=== PATIENT | male | born 1940 | race Caucasian/White ===

== ENCOUNTER 2021-11-26 11:25 | Inpatient (IN) | payer MEDICARE, OTHER ==
[~2021-11-26] VITALS: Ht 177.8 cm; Wt 62.9 kg
[2021-11-26] MEDS ORDERED: CHOL500013 PO (12:13)
[2021-11-26] MEDS ORDERED: UBID50TA3 PO (12:13)
[2021-11-26] MEDS ORDERED: ASCO500 PO (12:13)
[2021-11-26] MEDS ORDERED: ERGO500054 PO (12:13)
[2021-11-26] MEDS ORDERED: CALC-1275 PO (12:13)
[2021-11-26] MEDS ORDERED: FISH1CAP50 PO (12:13)
[2021-11-26] MEDS ORDERED: VITA0.4T20 PO (12:13)
[2021-11-26] MEDS ORDERED: ASPI-1444 PO (12:13)
[2021-11-26] MEDS ORDERED: PANT-31 PO (12:13)
[2021-11-26] MEDS ORDERED: MULT-1290 PO (12:13)
[2021-11-26] MEDS ORDERED: PIRF801T PO (12:13)
[2021-11-26] MEDS ORDERED: LISI-893 PO (12:13)
[2021-11-26] MEDS ORDERED: FERR134T2 PO (12:13)
[2021-11-26 12:23] LABS: BASOPHILS % (AUTO) 0.3 % (0.0-2.0); EOSINOPHILS % (AUTO) 0.4 % (1.0-6.0); HEMATOCRIT 41.3 % (41-53); HEMOGLOBIN 13.9 g/dL (13.5-17.5); LYMPHOCYTES # (AUTO) 1.3 K/uL (1.0-4.8); LYMPHOCYTES % (AUTO) 15.5 % (22.0-44.0); MEAN CORPUSCULAR HEMOGLOBIN 29.9 pg (26.0-34.0); MEAN CORPUSCULAR HGB CONC 33.7 G/dL (31.0-37.0); MEAN CORPUSCULAR VOLUME 89 fL (80-100); MONOCYTES # (AUTO) 0.8 K/uL (0.1-1.0); MONOCYTES % (AUTO) 9.9 % (2.0-9.0); NEUTROPHILS # (AUTO) 6.1 K/uL (1.8-7.7); NEUTROPHILS % (AUTO) 73.9 % (40.0-70.0); PLATELET COUNT (AUTO) 349 K/uL (150-450); RED BLOOD CELL COUNT(AUTO) 4.66 MIL/uL (4.50-5.90); RED CELL DISTRIBUTION WIDTH 13.8 % (11.5-14.5)
[2021-11-26] MEDS ORDERED: DILTIAZEM HCL 5 MG/ML 5 ML VIAL IVP ONE ×2 (12:30→13:00)
[2021-11-26 12:33] LABS: ANION GAP 8 mmol/L (8-16); CALCIUM, TOTAL 9.7 mg/dL (8.8-10.5); CARBON DIOXIDE 28 mmol/L (22-29); CHLORIDE 101 mmol/L (98-107); CREATININE 0.97 mg/dL (0.60-1.30); GLUCOSE,RANDOM 107 mg/dL (70-110); POTASSIUM 4.9 mmol/L (3.5-5.1); SODIUM SERUM 137 mmol/L (136-145); UREA NITROGEN, BLOOD 14 mg/dL (7-18)
[2021-11-26 12:34] LABS: GLOMERULAR FILTR. RATE CALC > 60 mL/min (>60)
[2021-11-26 12:39] LABS: ALANINE AMINOTRANSFERASE 14 U/L (12-78); ALBUMIN 4.1 g/dL (3.4-5.0); ALKALINE PHOSPHATASE 78 U/L (46-116); ASPARTATE AMINOTRANSFERASE 15 U/L (15-37); BILIRUBIN,TOTAL 0.7 mg/dL (0.1-1.0); CREATINE KINASE, TOTAL ONLY 50 U/L (39-308); PHOSPHORUS 3.2 mg/dL (2.5-4.9)
[2021-11-26 12:40] LABS: INR 1.1 (0.9-1.1); PROTHROMBIN TIME 11.5 SEC (9.4-11.6)
[2021-11-26 12:51] LABS: TOTAL PROTEIN, SERUM 8.2 g/dL (6.4-8.2)
[2021-11-26 12:59] LABS: B-TYPE NATRIURETIC PEPTIDE 208 pg/mL (0-100)
[2021-11-26] MEDS ORDERED: DILTIAZEM HCL 125 MG in DEXTROSE 5%-WATER 100 ML IV PRN (13:45)
[2021-11-26] MEDS ORDERED: DILTIAZEM HCL 60 MG SR CAPSULE PO ONE (13:45)
[2021-11-26] MEDS ORDERED: AMIODARONE HCL 360 MG in DEXTROSE 5%-WATER 242.8 ML IV ONE (14:00)
[2021-11-26] MEDS ORDERED: AMIODARONE HCL 150 MG in DEXTROSE 5%-WATER 97 ML IV ONE (14:00)
[2021-11-26] MEDS ORDERED: DIGOXIN 250 MCG/ML 2 ML AMP IVP ONE (14:00)
[2021-11-26] MEDS ORDERED: OMEG-126 PO (14:12)
[2021-11-26] MEDS ORDERED: ONDANSETRON HCL 4 MG/2 ML VIAL IVP PRN (14:15)
[2021-11-26] MEDS ORDERED: HydrALAZINE HCL 20 MG/ML VIAL IVP PRN (14:15)
[2021-11-26] MEDS ORDERED: ACETAMINOPHEN 325 MG TABLET PO PRN (14:15)
[2021-11-26] MEDS ORDERED: BISACODYL 10 MG RECTAL RECTAL SUPPOSITORY PR PRN (14:15)
[2021-11-26] MEDS ORDERED: ALBUTEROL SULFATE 2.5 MG/0.5 ML NEB SOLUTION NEB PRN (14:15)
[2021-11-26] MEDS ORDERED: IPRATROPIUM BROMIDE 0.5 MG/2.5 ML NEB SOLUTION NEB PRN (14:15)
[2021-11-26] MEDS ORDERED: 0.9% SODIUM CHLORIDE 10 ML SYRINGE IVP PRN (14:15)
[2021-11-26 14:29] LABS: THYROID STIMULATING HORMONE 1.56 uIU/mL (0.36-3.74)
[2021-11-26] MEDS ORDERED: HEPARIN SODIUM,PORCINE 5,000 UNITS/ML VIAL IVP ONE (14:30)
[2021-11-26] MEDS ORDERED: HEPARIN SODIUM,PORCINE 5,000 UNITS/ML VIAL IVP PRN ×2 (14:30)
[2021-11-26] MEDS ORDERED: HEPARIN SODIUM 25000 UNITS/D5W 250 ML IV PRN (14:30)
[2021-11-26 14:31] LABS: BASOPHILS % (AUTO) 0.3 % (0.0-2.0); EOSINOPHILS % (AUTO) 0.3 % (1.0-6.0); HEMATOCRIT 40.7 % (41-53); HEMOGLOBIN 13.6 g/dL (13.5-17.5); LYMPHOCYTES # (AUTO) 1.2 K/uL (1.0-4.8); MEAN CORPUSCULAR HEMOGLOBIN 29.5 pg (26.0-34.0); MEAN CORPUSCULAR HGB CONC 33.4 G/dL (31.0-37.0); MEAN CORPUSCULAR VOLUME 88 fL (80-100); MONOCYTES # (AUTO) 0.9 K/uL (0.1-1.0); MONOCYTES % (AUTO) 10.3 % (2.0-9.0); NEUTROPHILS % (AUTO) 76.1 % (40.0-70.0); PLATELET COUNT (AUTO) 346 K/uL (150-450); RED BLOOD CELL COUNT(AUTO) 4.62 MIL/uL (4.50-5.90); RED CELL DISTRIBUTION WIDTH 13.6 % (11.5-14.5)
[2021-11-26 14:44] LABS: INR 1.1 (0.9-1.1); PROTHROMBIN TIME 11.7 SEC (9.4-11.6)
[2021-11-26] MEDS ORDERED: PIRFENIDONE 801 MG PO SCH (16:00)
[2021-11-26 20:00] VITALS: BP 134/75
[2021-11-26] MEDS ORDERED: AMIODARONE HCL 540 MG in DEXTROSE 5%-WATER 239.2 ML IV ONE (20:00)
[2021-11-26] MEDS: DOCUSATE SODIUM 100 MG CAPSULE PO SCH (20:15)
[2021-11-26] MEDS: FERROUS SULFATE 325 MG EC TABLET PO SCH (20:17)
[2021-11-26] MEDS: PANTOPRAZOLE SODIUM 40 MG DR TABLET PO SCH (20:17)
[2021-11-26] MEDS: APIXABAN 5 MG TABLET PO SCH (20:17)
[2021-11-27 02:15] VITALS: BP 156/76
[2021-11-27 05:20] VITALS: BP 133/68
[2021-11-27 06:46] LABS: BASOPHILS % (AUTO) 0.4 % (0.0-2.0); EOSINOPHILS % (AUTO) 0.9 % (1.0-6.0); HEMATOCRIT 37.6 % (41-53); HEMOGLOBIN 12.8 g/dL (13.5-17.5); LYMPHOCYTES # (AUTO) 1.3 K/uL (1.0-4.8); LYMPHOCYTES % (AUTO) 11.2 % (22.0-44.0); MEAN CORPUSCULAR HEMOGLOBIN 29.9 pg (26.0-34.0); MEAN CORPUSCULAR VOLUME 88 fL (80-100); MONOCYTES # (AUTO) 1.2 K/uL (0.1-1.0); MONOCYTES % (AUTO) 10.5 % (2.0-9.0); NEUTROPHILS # (AUTO) 8.9 K/uL (1.8-7.7); PLATELET COUNT (AUTO) 325 K/uL (150-450); RED BLOOD CELL COUNT(AUTO) 4.27 MIL/uL (4.50-5.90)
[2021-11-27 07:00] LABS: ALANINE AMINOTRANSFERASE 11 U/L (12-78); ALBUMIN 3.5 g/dL (3.4-5.0); ALKALINE PHOSPHATASE 69 U/L (46-116); ANION GAP 5 mmol/L (8-16); ASPARTATE AMINOTRANSFERASE 13 U/L (15-37); CALCIUM, TOTAL 9.4 mg/dL (8.8-10.5); CARBON DIOXIDE 30 mmol/L (22-29); CHLORIDE 102 mmol/L (98-107); CHOL/HDL RATIO 3.1 (4.2-7.3); CHOLESTEROL 174 mg/dL (131-200); CREATININE 1.03 mg/dL (0.60-1.30); GLUCOSE,RANDOM 100 mg/dL (70-110); HDL CHOLESTEROL 56 mg/dL (40-60); LDL CHOL (CALC.) 109 mg/dL (0-130); POTASSIUM 4.6 mmol/L (3.5-5.1); SODIUM SERUM 137 mmol/L (136-145); TOTAL PROTEIN, SERUM 7.1 g/dL (6.4-8.2); TRIGLYCERIDES 45 mg/dL (15-150); UREA NITROGEN, BLOOD 16 mg/dL (7-18)
[2021-11-27 07:02] LABS: GLOMERULAR FILTR. RATE CALC > 60 mL/min (>60)
[2021-11-27 08:51] VITALS: BP 149/70
[2021-11-27] MEDS ORDERED: UBIDECARENONE 100 MG CAPSULE PO SCH (09:00)
[2021-11-27] MEDS ORDERED: ASPIRIN 81 MG CHEWABLE TABLET PO SCH (09:00)
[2021-11-27] MEDS ORDERED: LISINOPRIL 10 MG TABLET PO SCH (09:00)
[2021-11-27] MEDS ORDERED: VITAMIN B COMPLEX/FOLIC ACID 1 TABLET PO SCH (09:00)
[2021-11-27] MEDS ORDERED: CALCIUM OYSTER SHELL 250 MG-VIT D3 125 UNITS TABLET PO SCH (09:00)
[2021-11-27] MEDS ORDERED: ASCORBIC ACID 500 MG TABLET PO SCH (09:00)
[2021-11-27] MEDS ORDERED: OMEGA-3/DHA/EPA/FISH OIL 500 MG CAPSULE PO SCH (09:00)
[2021-11-27] MEDS: APIXABAN 5 MG TABLET PO SCH (09:23)
[2021-11-27] MEDS: FERROUS SULFATE 325 MG EC TABLET PO SCH (09:23)
[2021-11-27] MEDS: PANTOPRAZOLE SODIUM 40 MG DR TABLET PO SCH (09:24)
[2021-11-27] MEDS: DOCUSATE SODIUM 100 MG CAPSULE PO SCH (09:27)
[2021-11-27 11:52] VITALS: BP 146/77
[2021-11-27] MEDS ORDERED: LISI-892 PO (13:27)
[2021-11-27] MEDS ORDERED: AMIODARONE HCL 750 MG in DEXTROSE 5%-WATER 485 ML IV SCH (14:00)
== END 2021-11-27 14:00 | disposition home or self-care (01) | DRG 309 ==
LOC: EMS 11:25 → ICU 14:06 → 5N 23:30
PROVIDERS: ADMIT Internal Medicine; ATTEND Internal Medicine
DX: I48.0 Paroxysmal atrial fibrillation (principal); D68.69 Other thrombophilia; I16.0 Hypertensive urgency; I10 Essential (primary) hypertension; J84.10 Pulmonary fibrosis, unspecified; K21.9 Gastro-esophageal reflux disease without esophagitis; G62.9 Polyneuropathy, unspecified
CPT/HCPCS: 80053; 80061; 82550; 83735; 83880; 84100; 84443; 84484; 85025; 85610; 85730; 87081; 93005; 93306; 97162; 99291; J0282; J3490; J7060

== ENCOUNTER 2025-06-23 15:24 | Inpatient (IN) | payer MEDICARE, OTHER ==
[~2025-06-23] VITALS: Ht 177.8 cm; Wt 55.2 kg
[~2025-06-23 15:24] MED LIST: ASCO500 PO; CALC-1275 PO; CHOL500013 PO; ERGO500054 PO; FERR134T2 PO; LISI-892 PO; MULT-1290 PO; OMEG-287 PO; PANT-31 PO; PIRF801T PO; UBID50TA3 PO; VITA0.4T20 PO
[2025-06-23 17:06] LABS: PLATELET COUNT (AUTO) 445 K/uL (150-450); RED BLOOD CELL COUNT(AUTO) 4.35 MIL/uL (4.50-5.90); RED CELL DISTRIBUTION WIDTH 13.9 % (11.5-14.5); WHITE BLOOD COUNT (AUTO) 7.1 K/uL (4.5-11.0)
[2025-06-23 17:14] LABS: CALCIUM, TOTAL 9.3 mg/dL (8.8-10.5); CREATININE 0.80 mg/dL (0.60-1.30); GLOMERULAR FILTR. RATE CALC > 60 mL/min (>60); GLUCOSE,RANDOM 95 mg/dL (70-110); SODIUM SERUM 133 mmol/L (136-145); UREA NITROGEN, BLOOD 15 mg/dL (7-18)
[2025-06-23 17:24] LABS: TROPONIN I-HIGH SENSITIVITY 18 ng/L (<76)
[2025-06-23 17:32] LABS: LACTIC ACID 1.4 mmol/L (0.4-2.0)
[2025-06-23 18:21] LABS: COVID AG,FIA SOURCE NASAL SWAB
[2025-06-23 19:13] LABS: INFLUENZA TYPE A NEGATIVE FOR TYPE A (NEGATIVE); INFLUENZA TYPE B NEGATIVE FOR TYPE B (NEGATIVE)
[2025-06-23 19:16] LABS: SARS-COV2 (COVID) ANTIGEN,FIA Positive (Negative)
[2025-06-23] MEDS ORDERED: IPRATROPIUM BROMIDE 0.5 MG/2.5 ML NEB SOLUTION NEB PRN (21:30)
[2025-06-23] MEDS ORDERED: HYDROCODONE/ACETAMINOPHEN 5-325 MG TABLET PO PRN (21:30)
[2025-06-23] MEDS ORDERED: BISACODYL 10 MG RECTAL RECTAL SUPPOSITORY PR PRN (21:30)
[2025-06-23] MEDS ORDERED: MAGNESIUM HYDROXIDE SUSPENSION 30 ML UDCUP PO PRN (21:30)
[2025-06-23] MEDS ORDERED: ONDANSETRON HCL 4 MG/2 ML VIAL IVP PRN (21:30)
[2025-06-23] MEDS ORDERED: ACETAMINOPHEN 325 MG TABLET PO PRN (21:30)
[2025-06-23] MEDS ORDERED: ALBUTEROL SULFATE 2.5 MG/0.5 ML NEB SOLUTION NEB PRN (21:30)
[2025-06-23] MEDS ORDERED: ZOLPIDEM TARTRATE 5 MG TABLET PO PRN (21:30)
[2025-06-23] MEDS: REMDESIVIR 200 MG in SODIUM CHLORIDE 0.9% 250 ML IV ONE (22:31)
[2025-06-23] MEDS: MORPHINE SULFATE 4 MG/ML SYRINGE IVP PRN (22:31)
[2025-06-23] MEDS: HEPARIN SODIUM,PORCINE 5,000 UNITS/ML VIAL SQ SCH (23:27)
[2025-06-24] VITALS: BP 132/88; PULSE 91; RESP 18; TEMP 97.7; O2SAT 98
[2025-06-24] MEDS: ALBUTEROL SULFATE 2.5 MG/0.5 ML NEB SOLUTION NEB SCH (02:00)
[2025-06-24] MEDS: IPRATROPIUM BROMIDE 0.5 MG/2.5 ML NEB SOLUTION NEB SCH (02:00)
[2025-06-24 04:00] VITALS: BP 125/79; PULSE 65; RESP 18; TEMP 97.7; O2SAT 98
[2025-06-24 07:31] LABS: PLATELET COUNT (AUTO) 444 K/uL (150-450); RED BLOOD CELL COUNT(AUTO) 4.16 MIL/uL (4.50-5.90); RED CELL DISTRIBUTION WIDTH 13.9 % (11.5-14.5); WHITE BLOOD COUNT (AUTO) 5.9 K/uL (4.5-11.0)
[2025-06-24 07:40] LABS: CALCIUM, TOTAL 8.6 mg/dL (8.8-10.5); CREATININE 0.84 mg/dL (0.60-1.30); GLOMERULAR FILTR. RATE CALC > 60 mL/min (>60); GLUCOSE,RANDOM 128 mg/dL (70-110); SODIUM SERUM 133 mmol/L (136-145); UREA NITROGEN, BLOOD 14 mg/dL (7-18)
[2025-06-24 08:00] VITALS: BP 143/133; PULSE 133; RESP 20; TEMP 98.2; O2SAT 100
[2025-06-24] MEDS: DOCUSATE SODIUM 100 MG CAPSULE PO SCH (08:24)
[2025-06-24] MEDS: PANTOPRAZOLE SODIUM 40 MG DR TABLET PO SCH (08:24)
[2025-06-24] MEDS: GuaiFENesin SR 600 MG ER TABLET PO SCH (08:24)
[2025-06-24] MEDS: BENZONATATE 100 MG CAPSULE PO SCH (08:25)
[2025-06-24 16:18] VITALS: BP 105/78; PULSE 137; RESP 20; TEMP 97.1; O2SAT 99
[2025-06-24] MEDS: AMIODARONE HCL 150 MG in DEXTROSE 5%-WATER 97 ML IV ONE (18:32)
[2025-06-24] MEDS: AMIODARONE HCL 360 MG in DEXTROSE 5%-WATER 242.8 ML IV ONE (18:57)
[2025-06-24] MEDS ORDERED: SODIUM CHLORIDE 0.9% 250 ML IV ONE (19:43)
[2025-06-24 20:00] VITALS: BP 105/68; PULSE 79; RESP 19; TEMP 97.7; O2SAT 98
[2025-06-24 21:07] VITALS: BP 116/76; PULSE 75; RESP 18; O2SAT 99
[2025-06-24] MEDS: APIXABAN 2.5 MG TABLET PO SCH (21:07)
[2025-06-24] MEDS: REMDESIVIR 100 MG in SODIUM CHLORIDE 0.9% 250 ML IV SCH (21:07)
[2025-06-24] MEDS: METOPROLOL TARTRATE 25 MG TABLET PO SCH (21:07)
[2025-06-24] MEDS: AMIODARONE HCL 540 MG in DEXTROSE 5%-WATER 250 ML IV ONE (23:42)
[2025-06-25 00:22] VITALS: BP 103/62; PULSE 63; RESP 19; TEMP 97.9; O2SAT 99
[2025-06-25 04:11] VITALS: BP 117/72; PULSE 63; RESP 18; TEMP 97.9; O2SAT 100
[2025-06-25 06:03] LABS: PLATELET COUNT (AUTO) 446 K/uL (150-450); RED BLOOD CELL COUNT(AUTO) 3.88 MIL/uL (4.50-5.90); RED CELL DISTRIBUTION WIDTH 14.1 % (11.5-14.5); WHITE BLOOD COUNT (AUTO) 14.4 K/uL (4.5-11.0)
[2025-06-25 06:27] LABS: ASPARTATE AMINOTRANSFERASE 21 U/L (15-37); CALCIUM, TOTAL 8.5 mg/dL (8.8-10.5); CREATININE 0.94 mg/dL (0.60-1.30); GLOMERULAR FILTR. RATE CALC > 60 mL/min (>60); GLUCOSE,RANDOM 144 mg/dL (70-110); SODIUM SERUM 134 mmol/L (136-145); TOTAL PROTEIN, SERUM 6.1 g/dL (6.4-8.2); UREA NITROGEN, BLOOD 27 mg/dL (7-18)
[2025-06-25 06:35] LABS: TROPONIN I-HIGH SENSITIVITY 32 ng/L (<76)
[2025-06-25 07:05] LABS: RBC MORPHOLOGY COMMENT NORMAL RBC MORPH
[2025-06-25 08:00] VITALS: BP 104/69; PULSE 61; RESP 19; TEMP 97.7; O2SAT 97
[2025-06-25 11:16] VITALS: BP 104/58; PULSE 58; RESP 19; TEMP 97.5; O2SAT 97
[2025-06-25 16:00] VITALS: BP 130/64; PULSE 58; RESP 20; TEMP 98.4; O2SAT 99
[2025-06-25] MEDS ORDERED: AMIODARONE HCL 750 MG in DEXTROSE 5%-WATER 485 ML IV SCH (18:00)
[2025-06-25 19:56] VITALS: BP 124/67; PULSE 65; RESP 18; TEMP 97.7; O2SAT 100
[2025-06-26] VITALS (7 sets, daily range): BP systolic 120–144; BP diastolic 55–83; PULSE 55–66; RESP 17–19; TEMP 97.7–98.2; O2SAT 96–100
[2025-06-26 05:56] LABS: PLATELET COUNT (AUTO) 390 K/uL (150-450); RED BLOOD CELL COUNT(AUTO) 3.89 MIL/uL (4.50-5.90); RED CELL DISTRIBUTION WIDTH 14.4 % (11.5-14.5); WHITE BLOOD COUNT (AUTO) 17.5 K/uL (4.5-11.0)
[2025-06-26 06:12] LABS: ASPARTATE AMINOTRANSFERASE 26 U/L (15-37); CALCIUM, TOTAL 8.4 mg/dL (8.8-10.5); CREATININE 0.79 mg/dL (0.60-1.30); GLOMERULAR FILTR. RATE CALC > 60 mL/min (>60); GLUCOSE,RANDOM 144 mg/dL (70-110); SODIUM SERUM 135 mmol/L (136-145); TOTAL PROTEIN, SERUM 6.0 g/dL (6.4-8.2); UREA NITROGEN, BLOOD 34 mg/dL (7-18)
[2025-06-27 05:53] VITALS: BP 145/68; PULSE 57; RESP 18; TEMP 98.1; O2SAT 99
[2025-06-27 07:23] LABS: PLATELET COUNT (AUTO) 398 K/uL (150-450); RED BLOOD CELL COUNT(AUTO) 4.01 MIL/uL (4.50-5.90); RED CELL DISTRIBUTION WIDTH 14.1 % (11.5-14.5); WHITE BLOOD COUNT (AUTO) 16.4 K/uL (4.5-11.0)
[2025-06-27 07:34] LABS: ASPARTATE AMINOTRANSFERASE 99 U/L (15-37); CALCIUM, TOTAL 8.7 mg/dL (8.8-10.5); CREATININE 1.05 mg/dL (0.60-1.30); GLOMERULAR FILTR. RATE CALC > 60 mL/min (>60); GLUCOSE,RANDOM 141 mg/dL (70-110); SODIUM SERUM 134 mmol/L (136-145); TOTAL PROTEIN, SERUM 6.5 g/dL (6.4-8.2); UREA NITROGEN, BLOOD 35 mg/dL (7-18)
[2025-06-27 08:19] VITALS: BP 148/76; PULSE 61; RESP 19; TEMP 98.4; O2SAT 100
[2025-06-27] MEDS ORDERED: APIX2.5T PO (10:50)
[2025-06-27] MEDS ORDERED: METO25 PO (10:50)
[2025-06-27 12:31] VITALS: BP 122/61; PULSE 65; RESP 18; TEMP 98.6; O2SAT 97
[2025-06-27] MEDS ORDERED: GUAI100L96 PO (13:04)
[2025-06-27] MEDS ORDERED: DEXA2 PO (13:04)
[2025-06-27 15:50] VITALS: BP 124/62; PULSE 61; RESP 18; TEMP 98.4; O2SAT 99
== END 2025-06-27 16:20 | disposition home or self-care (01) | DRG 177 ==
LOC: EMS 15:24 → EDH 20:10 → 5S 22:09
PROVIDERS: ADMIT Internal Medicine; ATTEND Internal Medicine
PROC: XW033E5 Introduction of Remdesivir Anti-infective into Peripheral Vein, Percutaneous Approach, New Technology Group 5 (ICD-10-PCS; principal; 2025-06-23)
DX: U07.1 COVID-19 (principal); J12.82 Pneumonia due to coronavirus disease 2019; J96.91 Respiratory failure, unspecified with hypoxia; E44.0 Moderate protein-calorie malnutrition; Z68.1 Body mass index [BMI] 19.9 or less, adult; J84.10 Pulmonary fibrosis, unspecified; I10 Essential (primary) hypertension; D64.9 Anemia, unspecified; G62.9 Polyneuropathy, unspecified; K21.9 Gastro-esophageal reflux disease without esophagitis; M81.0 Age-related osteoporosis without current pathological fracture; I48.0 Paroxysmal atrial fibrillation; Z79.01 Long term (current) use of anticoagulants; Z79.899 Other long term (current) drug therapy
CPT/HCPCS: 71045; 80048; 80053; 83605; 83880; 84443; 84484; 85025; 87040; 87804; 93005; 93306; 96365; 96366; 97162; 99285; J0282; J1644; J2270; J2919; J7050; J7060; 36415-L1; 36415-TC; J7613